=== PATIENT | female | born 1985 | race Asian ===

== ENCOUNTER 2018-05-18 22:26 | Inpatient (IN) | payer OTHER ==
[~2018-05-18] VITALS: Ht 162.6 cm; Wt 75.9 kg
[2018-05-18 22:54] VITALS: Ht 162.6 cm; Wt 75.9 kg
[2018-05-18 22:56] VITALS: BP 127/82; PULSE 108; RESP 17
[2018-05-18] MEDS ORDERED: PREN1TAB13 PO (23:04)
[2018-05-18] MEDS ORDERED: MISOPROSTOL 200 MCG TAB PR PRN (23:30)
[2018-05-18] MEDS ORDERED: OXYTOCIN 30 UNITS/LR 500 ML IV PRN (23:30)
[2018-05-18] MEDS ORDERED: OXYTOCIN 30 UNITS/LR 500 ML IV SCH ×2 (23:30)
[2018-05-18] MEDS ORDERED: IBUPROFEN 600 MG TAB PO PRN (23:30)
[2018-05-18] MEDS ORDERED: METHYLERGONOVINE 0.2 MG INJ IM PRN (23:30)
[2018-05-18] MEDS ORDERED: CARBOPROST 250 MCG INJ IM PRN (23:30)
[2018-05-18] MEDS ORDERED: LIDOCAINE 1% (MPF) 30 ML INJ INJ PRN (23:30)
[2018-05-18] MEDS ORDERED: BUTORPHANOL 2 MG INJ IV PRN (23:30)
[2018-05-18] MEDS: LACTATED RINGER'S 1,000 ML IV SCH (23:49)
--- NOTE | 2018-05-19 02:12 | TRIAGE ---
OB Triage Datetime Report Generated by CPN: 05/19/2018 02:12 Datetime: 05/19/2018 01:06 Assessment Type: Admission Assessment Vaginal Bleeding: Normal Show Maternal Assessment Level of Consciousness: Fully Conscious DTR's/Clonus: DTRs 2+; No Clonus Headache: Denies Blurred Vision: No Respiratory Effort: Unlabored; Regular Rhythm; Equal Expansion Breath Sounds, Left: Clear and Equal Breath Sounds, Right: Clear and Equal Nausea/Vomiting: Denies RUQ Epigastric Pain: Denies Lower Extremities Edema: Bilateral Lower Extremities (Annotations: TRACE) Upper Extremities Edema: Bilateral Upper Extremities (Annotations: TRACE) Facial Edema: None Fall Risk Assessment History of Falling: (0) No Secondary Diagnosis: (0) No Ambulatory Aid: (0) Bedrest/Nurse Assist IV Therapy: (20) Yes Gait: (0) Normal/Bedrest/Immobile Mental Status: (0) Oriented to Own Ability Fall Score: 20 Fall Risk Score Definition: No Risk: No action required Pain Assessment Pain Scale: 9 Pain Presence: Intermittent Pain Type: Contraction Pain Location: Abdomen Pain Goal: 3 Datetime: 05/19/2018 01:05 Arrived By: Ambulatory Arrived From: Home Datetime: 05/19/2018 00:53 Vaginal Exam Dilatation (cms): 4.0 Effacement (%): 70 Station: -3 Exam By: Amy CARMICHAEL Datetime: 05/18/2018 23:58 Time of Arrival: 05/18/2018 22:12 EGA: 38.5 Arrived By: Wheelchair Arrived From: Home Chief Complaint: ABDOMINAL PAIN AND VAGINAL BLEEDING Movement: Present Contractions: Irregular Time Contractions Began: 05/18/2018 20:00 Contractions: 4-8 Rupture of Membranes: Denies Vaginal Bleeding: Small Vaginal Discharge: Denies Recent Sexual Intercouse: Denies Abdominal Trauma: Not Applicable Patient Complaints: Other Time Provider Notified: 05/18/2018 23:32 Provider Notified: DR. BRYAN Initial Plan: EFM, SVE, CALL OB Datetime: 05/18/2018 23:20 Vaginal Exam Dilatation (cms): 3.0 Effacement (%): 70 Station: -2 Exam By: Jael PIZARROCONG Membrane Status: Bulging Cervix, Consistency: Soft Datetime: 05/18/2018 22:30 Stage of : OB Triage Maternal Assessment Level of Consciousness: Fully Conscious DTR's/Clonus: DTRs 2+; No Clonus Headache: Denies Blurred Vision: No Respiratory Effort: Unlabored; Regular Rhythm; Equal Expansion Breath Sounds, Left: Clear and Equal Breath Sounds, Right: Clear and Equal Nausea/Vomiting: Denies RUQ Epigastric Pain: Denies Lower Extremities Edema: None Degree: None Upper Extremities Edema: None Degree: None Facial Edema: None Temperature Route: Oral Fall Risk Assessment History of Falling: (0) No Secondary Diagnosis: (0) No Ambulatory Aid: (0) Bedrest/Nurse Assist IV Therapy: (0) No Gait: (0) Normal/Bedrest/Immobile Mental Status: (0) Oriented to Own Ability Fall Score: 0 Fall Risk Score Definition: No Risk: No action required Pain Assessment Pain Scale: 2 Pain Presence: Intermittent Pain Type: Contraction Pain Location: Abdomen Pain Relief Measures: Comfort Measures Datetime: 05/18/2018:28 Labor Evaluation Monitor Mode: External Contraction Comments: APPLIED Heart Rate Monitor Mode: External US Comments: APPLIED
--- NOTE | 2018-05-19 02:40 | PREAC ---
Date/Time of Note Date/Time of Note DATE: 05/19/18 TIME: 02:39 Anesthesia Eval and Record Evaluation Time Pre-Procedure Interview DATE: 05/19/18 TIME: 02:39 Age 32 Sex female NPO: 8 hrs Preoperative diagnosis llabor pain Planned procedure epidural Past Medical History Past Medical History: None Surgery & Anesthesia Issues No known issue Meds Anticoagulation: No Beta Celia within 24 hr: No Reason Beta Celia not given: Pt. not on B-Celia Reported Medications Pnv95/Ferrous Fumarate/FA ( Vitamins Tablet) 1 Each Tablet, 1 EACH PO, TAB 05/18/18 Current Medications Lactated Ringer's 1,000 ml @ 125 mls/hr Q8H IV Last administered on 05/18/18at 23:49; Admin Dose 125 MLS/HR; Start 05/18/18 at 23:23 Butorphanol Tartrate (Stadol) 2 mg Q2H PRN IV .PAIN Last administered on 05/19/18at 00:53; Admin Dose 2 MG; Start 05/18/18 at 23:30 Lidocaine (Xylocaine 1% (Mpf)) 30 ml ONCE PRN INJ .EPISIOTOMY; Start 05/18/18 at 23:30 Oxytocin/Lactated Ringer's 500 ml @ 500 mls/hr ONCE POST IV ; Start 05/18/18 at 23:30 Oxytocin/Lactated Ringer's 500 ml @ 125 mls/hr POST IV ; Start 05/18/18 at 23:30 Ibuprofen (Motrin) 600 mg ONCE PRN PO .PAIN 1-5; Start 05/18/18 at 23:30 Oxytocin/Lactated Ringer's 500 ml @ 0 mls/hr ONCE PRN IV .VAGINAL BLEEDING; Start 05/18/18 at 23:30 Methylergonovine Maleate (Methergine) 0.2 mg ONCE PRN IM .VAGINAL BLEEDING; Start 05/18/18 at 23:30 Carboprost Tromethamine (Hemabate) 250 mcg ONCE PRN IM .VAGINAL BLEEDING; Start 05/18/18 at 23:30 Misoprostol (Cytotec) 1,000 mcg ONCE PRN MI .VAGINAL BLEEDING; Start 05/18/18 at 23:30 Meds reviewed: Yes Allergies Coded Allergies: No Known Allergy (Unverified , 05/18/18) Allergies Reviewed: Yes Labs/Studies Labs Reviewed: Reviewed by anesthesiologist Result Diagram: 05/18/18 2345 Laboratory Tests 05/18/18 23:45 Blood Bank Test 05/18/18 23:45 Antibody Screen NEGATIVE Blood Type AB POSITIVE Rh Immune Globulin Candidate NO test: Positive Studies: ECG (n/a), CXR (n/a) Pre-procedure Exam Last vitals Vital Signs Date Temp Pulse Resp B/P (MAP) Pulse Ox O2 O2 Flow FiO2 Time Delivery Rate 05/18/18 98.7 108 17 127/82 Room Air 22:56 (97) Airway: Adequate mouth opening Mallampati: Mallampati I Teeth: Normal Lung: Normal Heart: Normal ASA Physical Status ASA physical status: 2 Emergency: None Planned Pain Management Epidural Pre-operative Attestations Prior to commencing anesthesia and surgery, the patient was re-evaluated, there was verification of: *The patient's identity *The results of appropriate recent lab work and preoperative vital signs *The above evaluation not changing prior to induction *Anesthetic plan, risk benefits, alternative and complications discussed with patient/family; questions answered; patient/family understands, accepts and wishes to proceed. JUAN WEAVER MD May 19, 2018 02:40
[2018-05-19] MEDS ORDERED: FENTAnyl 2MCG/ML-ROPIV 0.2% 100 ML ONE (03:25)
[2018-05-19] MEDS: LACTATED RINGER'S 1,000 ML IV SCH ×2 (05:07→05:08)
[2018-05-19] MEDS ORDERED: FENTAnyl 2MCG/ML-ROPIV 0.2% 100 ML BAG EPI SCH (07:30)
[2018-05-19] MEDS ORDERED: NALOXONE (0.4 MG/ML) INJ IV PRN (07:30)
--- NOTE | 2018-05-19 07:46 | PAC ---
Date/Time of Note Date/Time of Note DATE: 05/19/18 TIME: 07:46 Post-Anesthesia Notes Post-Anesthesia Note Last documented vital signs Vital Signs Date Temp Pulse Resp B/P (MAP) Pulse Ox O2 O2 Flow FiO2 Time Delivery Rate 05/19/18 98.7 100 17 127/82 99 Room Air 07:56 (97) Activity: WNL Respiratory function: WNL Cardiovascular function: WNL Mental status: Baseline Pain reasonably controlled: Yes Hydration appropriate: Yes Nausea/Vomiting absent: No JUAN WEAVER MD May 19, 2018 07:46
[2018-05-19] MEDS ORDERED: MINERAL OIL LIGHT 10 ML VIAL TOP ONE (09:00)
--- NOTE | 2018-05-19 10:15 | HP ---
Date/Time of Note Date/Time of Note DATE: 05/19/18 TIME: 10:13 OB - History Hx of Present Chief Complaint: contractions Estimated Due Date: May 30, 2018 : 1 Para: 0 Spontaneous : 0 Therapeutic : 0 Care: Good Care Ultrasounds: Normal mid trimester US Obstetrical Complications: None Medical Complications: None Past Family/Social History * Past Medical, Surgical, Family and Obstetric Histories reviewed from chart. GBS Status: Negative OB Admission Exam Vital Signs Vital Signs Vital Signs Date Temp Pulse Resp B/P (MAP) Pulse Ox O2 O2 Flow FiO2 Time Delivery Rate 05/18/18 98.7 108 17 127/82 Room Air 22:56 (97) Physical Exam HEENT: WNL Heart: Rhythm Normal Lungs: Clear, Equal Abdomen: WNL Extremities: Normal Reflexes: Normal Cervical Dilatation: 3cm Effacement: 75% Station: -1 Membranes: Intact Heart Rate: 120's Accelerations: Accelerations Present Decelerations: No Decelerations Varibility: Moderate Last 72 hours Lab Results CBC & BMP 05/18/18 23:45 OB Assessment/Plan Reason for admission: active labor Plan: Expectant Management SOPHIE BRYAN MD May 19, 2018 10:15
--- NOTE | 2018-05-19 10:17 | LDN ---
Date/Time of Note Date/Time of Note DATE: 05/19/18 TIME: 10:15 Delivery Summary Placenta Delivered: Spontaneously Meconium: Light Episiotomy: No Laceration repair: Second degree perineal laceration repaired with 3-0 Vicryl. Anesthesia type: Epidural Estimated blood loss: 300 Sponge & Needle done & correct: Yes All needle counts correct: Yes Any foreign bodies felt in the: No Delivery Information Sex Sex: female Apgars 1 Minute: 8 5 Minute: 9 Suctioning Nose & mouth suctioned at luis felipe: Yes Delee suction performed: No Umbilical Cord Umbilical cord with: 3 Vessels Cord presentations: no nuchal cord Cord Blood was obtained: Yes Mother & Baby Disposition Disposition Mom & Baby to Maternity; Good: Yes SOPHIE BRYAN MD May 19, 2018 10:17
[2018-05-19 11:45] VITALS: BP 115/76; PULSE 81; RESP 18
[2018-05-19] MEDS: LACTATED RINGER'S 1,000 ML IV* SCH ×2 (11:50→15:05)
[2018-05-19] MEDS ORDERED: DIBUCAINE 1% 30 GM OINT TOP PRN (12:00)
[2018-05-19] MEDS ORDERED: HYDROCODONE/APAP (5/325) TAB PO PRN (12:00)
[2018-05-19] MEDS ORDERED: CARBOPROST 250 MCG INJ IM PRN (12:00)
[2018-05-19] MEDS ORDERED: ACETAMINOPHEN 325 MG TAB PO PRN (12:00)
[2018-05-19] MEDS ORDERED: MISOPROSTOL 200 MCG TAB PR PRN (12:00)
[2018-05-19] MEDS ORDERED: METHYLERGONOVINE 0.2 MG INJ IM PRN (12:00)
[2018-05-19] MEDS ORDERED: OXYTOCIN 30 UNITS/LR 500 ML IV PRN (12:00)
[2018-05-19] MEDS: IBUPROFEN 600 MG TAB PO SCH ×3 (12:22→23:41)
[2018-05-19] MEDS: BENZOCAINE 20% 56 ML SPRAY TOP PRN (12:23)
[2018-05-19] MEDS: WITCH HAZEL/GLYCERIN PAD PR PRN (12:23)
[2018-05-19 16:21] VITALS: BP 114/74; RESP 18
[2018-05-19 19:45] VITALS: BP 104/60; PULSE 90; RESP 19
[2018-05-19] MEDS: SENNA/DOCUSATE NA (8.6MG/50MG) TAB PO SCH (21:13)
[2018-05-19 23:45] VITALS: BP 111/68; PULSE 91; RESP 18
[2018-05-20] MEDS: LACTATED RINGER'S 1,000 ML IV* SCH (02:41)
[2018-05-20 03:45] VITALS: BP 102/56; PULSE 92; RESP 18
[2018-05-20] MEDS: IBUPROFEN 600 MG TAB PO SCH ×4 (05:41→23:52)
[2018-05-20 08:30] VITALS: BP 101/65; PULSE 83; RESP 18
[2018-05-20] MEDS: SENNA/DOCUSATE NA (8.6MG/50MG) TAB PO SCH ×2 (09:00→22:10)
[2018-05-20 15:45] VITALS: BP 118/78; PULSE 83; RESP 18
--- NOTE | 2018-05-20 16:42 | DS ---
Date/Time of Note Date/Time of Note DATE: 05/20/18 TIME: 16:42 Obstetrical Discharge Record Final Diagnosis Final Diagnosis: Term delivered Vaginal Delivery Obstetrical Delivery: Spontaneous Condition on Discharge Physical Assessment Voiding: Yes Bowel Movement: Yes Breast: Soft, non-tender, Filling Fundus: Firm Calf Tenderness: No Patient Condition: Stable SOPHIE BRYAN MD May 20, 2018 16:42
[2018-05-20 22:00] VITALS: BP 130/70; PULSE 96; RESP 18
[2018-05-21] MEDS: IBUPROFEN 600 MG TAB PO SCH ×2 (06:00→12:22)
[2018-05-21 07:45] VITALS: BP 107/67; PULSE 78; RESP 18
[2018-05-21] MEDS: SENNA/DOCUSATE NA (8.6MG/50MG) TAB PO SCH (08:37)
[2018-05-21] MEDS ORDERED: DIPHTH/TET/ACEL PERTUSS (ADULT) 0.5 ML VIAL IM* ONE (09:00)
[2018-05-21] MEDS: WITCH HAZEL/GLYCERIN PAD PR PRN (12:22)
[2018-05-21] MEDS: BENZOCAINE 20% 56 ML SPRAY TOP PRN (12:22)
--- NOTE | 2018-05-22 18:15 | DELSUM ---
Delivery Summary A-C Datetime Report Generated by CPN: 05/22/2018 18:14 DELIVERY PERSONNEL Curator Of Photography And Prints: Sebunnya, Phoebe MATERNAL INFORMATION Delivery Anesthesia: Local; Epidural Medications in Delivery: lr 500ml pitocin 30 units Delivery QBL (ml): 300 Placenta Cultured: No Maternal Complications: None LABOR SUMMARY EDC: 05/27/2018 00:00 No. Babies in Womb: 0 Attempted: No Labor Anesthesia: Epidural LABOR INFORMATION Reason for Induction: Not Applicable Onset of Labor: 05/18/2018 21:00 Complete Dilatation: 05/19/2018 08:25 Oxytocin: N/A Group B Beta Strep: Negative Antibiotics # of Doses: 0 Steroids Given: None Reason Steroids Not Administered: Not Applicable MEMBRANES Membranes Rupture Method: Artificial Rupture of Membranes: 05/19/2018 08:25 Length of Rupture (hr): 1.25 Amniotic Fluid Color: Light Meconium Amniotic Fluid Amount: Moderate Amniotic Fluid Odor: Normal STAGES OF LABOR Stage 1 hr: 11 Stage 1 min: 25 Stage 2 hr: 1 Stage 2 min: 15 Stage 3 hr: 0 Stage 3 min: 3 Total Time in Labor hr: 12 Total Time in Labor min: 43 VAGINAL DELIVERY Episiotomy: None Laceration Extension: Second Degree Laceration Type: Perineal Laceration Repair: Yes Initial Vag Sponge Count: 10 Final Vag Sponge Count: 10 Initial Vag Sharps Count: 2 Final Vag Sharps Count: 2 Sponge Count Correct: Yes; Vaginal Sweep Performed Sharps Count Correct: Yes BABY A INFORMATION Infant Delivery Date/Time: 05/19/2018 09:40 Method of Delivery: Vaginal Born in Route : No : N/A Forceps: N/A Vacuum Extraction: N/A Shoulder Dystocia : N/A SHOULDER DYSTOCIA BABY A Infant Delivery Date/Time: 05/19/2018 09:40 PRESENTATION/POSITION BABY A Presentation: Cephalic Cephalic Presentation: Vertex Vertex Position: Left Occipital Anterior Breech Presentation: N/A PLACENTA INFORMATION BABY A Placenta Delivery Time : 05/19/2018 09:43 Placenta Method of Delivery: Spontaneous Placenta Status: Delivered SCORES BABY A Heart Rate 1 min: >100 bpm Resp Effort 1 min: Good Cry Reflex Irritability 1 min: Cough/Sneeze/Pulls Away Muscle Tone 1 min: Active Motion Color 1 min: Body Enhaut, Extremit Blue SCORE 1 MIN: 9 Heart Rate 5 min: >100 bpm Resp Effort 5 min: Good Cry Reflex Irritability 5 min: Cough/Sneeze/Pulls Away Muscle Tone 5 min: Active Motion Color 5 min: Body Enhaut, Extremit Blue SCORE 5 MIN: 9 INFANT INFORMATION BABY A Gestational Age at Delivery: 38.6 Gestational Status: Early Term- 37- 38.6 Weeks Infant Outcome : Liveborn Condition : Stable Sex: Female IDENTIFICATION/MEDS BABY A ID Band Number: [id number] ID Band Location: Right Leg; Left Arm Sensor Applied: Yes Sensor Number: [id number] Sensor Location : Cord Clamp Vitamin K Given : Not Given Erythromycin Given: Not Given WEIGHT/LENGTH BABY A Infant Birthweight (gm): 3375 Weight (lb): 7 Weight (oz): 7 Length (in): 19.50 Infant Length (cm): 49.53 CORD INFORMATION BABY A No. Cord Vessels: 3 Nuchal Cord : N/A Nuchal Cord- Other: 0 True Knot: 0 Cord Blood Taken: Yes Banking/Donate Info: no Suction: Mouth; Nose ASSESSMENT BABY A Complications: Multiple Variable Decels; Meconium Infant Complications- Other: light meconium Physical Findings at Delivery: Within Normal Limits Respirations: Appears Normal Field Assistant/ALS Called : Yes Infant Care By: RICHIE VIRAMONTES Transferred To: Remains with Mother
== END 2018-05-21 18:00 | disposition home or self-care (01) | DRG 807 ==
LOC: OBT 22:26 → L-D 22:27 → OBT 23:34 → PP1 05-19 12:02
PROVIDERS: ADMIT Obstetrics & Gynecology; ATTEND Obstetrics & Gynecology
PROC: 10E0XZZ Delivery of Products of Conception, External Approach (ICD-10-PCS; principal; 2018-05-19)
PROC: 0KQM0ZZ Repair Perineum Muscle, Open Approach (ICD-10-PCS; 2018-05-19)
DX: O70.1 Second degree perineal laceration during delivery (principal); Z37.0 Single live birth; Z3A.37 37 weeks gestation of pregnancy
CPT/HCPCS: 62319; 76815; 76818; 85025; 85610; 85730; 86592; 86850; 86900; 86901; 87340; 90715; 99464; G0463; J0595; J2590; J3010; J7120